=== PATIENT | female | born 1960 | race Caucasian/White ===

== ENCOUNTER 2017-01-20 17:22 | Inpatient (IN) | payer OTHER ==
[~2017-01-20 17:22] MED LIST: CERTAGEN1 EACH PO; FOLIC ACID1 MG PO; THIAMINE HCL100 MG PO
[2017-01-20 18:29] LABS: BILIRUBIN NEGATIVE (NEGATIVE); BLOOD NEGATIVE Ery/uL (NEGATIVE); CLARITY CLEAR (CLEAR); COLOR YELLOW (YELLOW); GLUCOSE (U) NORMAL (NORMAL); KETONE (U) NEGATIVE (NEGATIVE); LEUKOCYTES NEGATIVE Leu/uL (NEGATIVE); NITRITE NEGATIVE (NEGATIVE); PROTEIN NEGATIVE (NEGATIVE); SPECIFIC GRAVITY 1.015 (1.001-1.030); UROBILINOGEN 0.2 mg/dL (0.2-1.0); pH 7.5 (5.0-9.0)
[2017-01-20 19:51] LABS: BASOPHIL 0.2 % (0-2); EOSINOPHIL 0.1 % (0-5); HCT 37.6 % (37.0-47.0); HGB 13.5 g/dl (12.5-16.0); LYMPHOCYTE 8.2 % (15-48); MCHC 35.9 g/dL (32.0-36.0); MCV 86.2 fL (78.0-100.0); MONOCYTE 7.6 % (0-12); MPV 9.1 fL (6.0-9.5); NEUTROPHIL 83.9 % (41-80); PLT 192 K/uL (150-400); RBC 4.36 M/uL (4.20-5.40); RDW 12.5 % (11.5-14.0); WBC 15.6 K/uL (4.0-10.5)
[2017-01-20 19:58] LABS: ALBUMIN 4.6 g/dL (3.5-5.0); CREATININE 0.6 mg/dL (0.5-1.0); GLOBULIN (CALCULATION) 3.1 g/dL (2.2-4.2); POTASSIUM 4.2 mmol/L (3.5-5.1); TOTAL PROTEIN 7.7 g/dL (6.4-8.3)
[2017-01-20 20:25] LABS: LACTIC ACID 1.2 mmol/L (0.5-2.2)
[2017-01-20 22:10] LABS: CKMB 1.11 ng/mL (0.97-4.94); TROPONIN T < 0.010 ng/mL
[2017-01-20 22:11] LABS: AMPHETAMINES NEGATIVE (NEGATIVE); BARBITURATES NEGATIVE (NEGATIVE); BENZODIAZEPINES NEGATIVE (NEGATIVE); COCAINE NEGATIVE (NEGATIVE); MARIJUANA (THC) NEGATIVE (NEGATIVE); METHADONE NEGATIVE (NEGATIVE); TRICYCLIC ANTIDEPRESSANT NEGATIVE (NEGATIVE)
[2017-01-21 01:51] LABS: TROPONIN T < 0.010 ng/mL
[2017-01-21 07:22] LABS: BASOPHIL 0.4 % (0-2); EOSINOPHIL 0.1 % (0-5); HCT 31.6 % (37.0-47.0); HGB 10.6 g/dl (12.5-16.0); LYMPHOCYTE 11.1 % (15-48); MCH 29.9 pg (25.0-31.0); MCHC 33.5 g/dL (32.0-36.0); MONOCYTE 11.7 % (0-12); MPV 8.8 fL (6.0-9.5); NEUTROPHIL 76.7 % (41-80); PLT 146 K/uL (150-400); RBC 3.55 M/uL (4.20-5.40); RDW 12.9 % (11.5-14.0)
[2017-01-21 07:41] LABS: TROPONIN T < 0.010 ng/mL
[2017-01-21 10:56] LABS: BILIRUBIN NEGATIVE (NEGATIVE); BLOOD 1+ Ery/uL (NEGATIVE); CLARITY CLEAR (CLEAR); COLOR YELLOW (YELLOW); GLUCOSE (U) NORMAL (NORMAL); KETONE (U) NEGATIVE (NEGATIVE); LEUKOCYTES NEGATIVE Leu/uL (NEGATIVE); NITRITE NEGATIVE (NEGATIVE); PROTEIN NEGATIVE (NEGATIVE); SPECIFIC GRAVITY 1.025 (1.001-1.030); UROBILINOGEN 0.2 mg/dL (0.2-1.0); pH 5.5 (5.0-9.0)
[2017-01-21 10:57] LABS: INR 1.21 (0.9-1.2); PROTHROMBIN TIME 14.9 SECONDS (11.7-14.0); PTT 30.7 SECONDS (23.2-31.4)
[2017-01-21 10:59] LABS: ALBUMIN 3.5 g/dL (3.5-5.0); BILIRUBIN - TOTAL 1.4 mg/dL (0.1-1.0); CREATININE 0.6 mg/dL (0.5-1.0); GLOBULIN (CALCULATION) 2.4 g/dL (2.2-4.2); MAGNESIUM 1.62 mg/dL (1.40-2.10); PHOSPHORUS 3.4 mg/dL (2.7-4.5); POTASSIUM 3.6 mmol/L (3.5-5.1); TOTAL PROTEIN 5.9 g/dL (6.4-8.3)
[2017-01-22 06:54] LABS: HCT 30.6 % (37.0-47.0); HGB 10.1 g/dl (12.5-16.0); MCH 29.8 pg (25.0-31.0); MCV 90.3 fL (78.0-100.0); MPV 9.4 fL (6.0-9.5); RBC 3.39 M/uL (4.20-5.40); RDW 12.6 % (11.5-14.0); WBC 8.7 K/uL (4.0-10.5)
[2017-01-22 07:12] LABS: CREATININE 0.7 mg/dL (0.5-1.0); POTASSIUM 3.6 mmol/L (3.5-5.1)
== END 2017-01-23 13:27 | disposition home or self-care (01) | DRG 854 ==
LOC: FER 17:22 → FTCU 21:00 → FMS 01-22 17:55
PROVIDERS: Emergency Medicine; Nurse Practitioner; Surgery; ADMIT Internal Medicine
PROC: 0DTJ4ZZ Resection of Appendix, Percutaneous Endoscopic Approach (ICD-10-PCS; principal; 2017-01-20)
DX: A41.9 Sepsis, unspecified organism (principal); K35.80 Unspecified acute appendicitis; I10 Essential (primary) hypertension; I25.2 Old myocardial infarction; F10.21 Alcohol dependence, in remission; F17.210 Nicotine dependence, cigarettes, uncomplicated
CPT/HCPCS: 36415; 71010; 80048; 80053; 80305; 81003; 82150; 82550; 82553; 83605; 83690; 83735; 84100; 84145; 84484; 85025; 85610; 85730; 87040; 88304; 93005; 94010; J0131; J1170; J1885; J2405; J2543; J2704; J3010; J3411; Q9967

== ENCOUNTER 2017-01-30 22:19 | Inpatient (IN) | payer OTHER ==
[2017-01-31 00:03] LABS: BASOPHIL 0.7 % (0-2); EOSINOPHIL 0.9 % (0-5); HCT 34.8 % (37.0-47.0); LYMPHOCYTE 18.7 % (15-48); MCH 30.5 pg (25.0-31.0); MCHC 34.5 g/dL (32.0-36.0); MCV 88.3 fL (78.0-100.0); MONOCYTE 6.8 % (0-12); MPV 8.5 fL (6.0-9.5); NEUTROPHIL 72.9 % (41-80); PLT 481 K/uL (150-400); RBC 3.94 M/uL (4.20-5.40); RDW 13.1 % (11.5-14.0); WBC 10.1 K/uL (4.0-10.5)
[2017-01-31 00:08] LABS: INR 1.06 (0.9-1.2); PROTHROMBIN TIME 13.4 SECONDS (11.7-14.0); PTT 30.9 SECONDS (23.2-31.4)
[2017-01-31 00:31] LABS: ALBUMIN 4.4 g/dL (3.5-5.0); BILIRUBIN - TOTAL 0.3 mg/dL (0.1-1.0); CREATININE 0.7 mg/dL (0.5-1.0); GLOBULIN (CALCULATION) 2.9 g/dL (2.2-4.2); POTASSIUM 3.6 mmol/L (3.5-5.1); TOTAL PROTEIN 7.3 g/dL (6.4-8.3)
[2017-01-31 05:07] LABS: BASOPHIL 0.4 % (0-2); EOSINOPHIL 0.5 % (0-5); HCT 31.3 % (37.0-47.0); HGB 10.5 g/dl (12.5-16.0); LYMPHOCYTE 15.6 % (15-48); MCHC 33.5 g/dL (32.0-36.0); MCV 89.4 fL (78.0-100.0); MONOCYTE 8.2 % (0-12); MPV 8.2 fL (6.0-9.5); NEUTROPHIL 75.3 % (41-80); PLT 427 K/uL (150-400); WBC 12.8 K/uL (4.0-10.5)
[2017-01-31 05:17] LABS: CREATININE 0.8 mg/dL (0.5-1.0); POTASSIUM 3.9 mmol/L (3.5-5.1)
[2017-01-31 05:18] LABS: CKMB 2.99 ng/mL (0.97-4.94); TROPONIN T < 0.010 ng/mL
[2017-02-01 04:42] LABS: HCT 27.1 % (37.0-47.0); HGB 8.7 g/dl (12.5-16.0); MCH 29.4 pg (25.0-31.0); MCHC 32.1 g/dL (32.0-36.0); MCV 91.6 fL (78.0-100.0); MPV 8.3 fL (6.0-9.5); RBC 2.96 M/uL (4.20-5.40); RDW 12.9 % (11.5-14.0); WBC 9.3 K/uL (4.0-10.5)
[2017-02-02 05:01] LABS: HCT 26.1 % (37.0-47.0); HGB 8.6 g/dl (12.5-16.0); MCH 29.7 pg (25.0-31.0); MPV 8.7 fL (6.0-9.5); RBC 2.9 M/uL (4.20-5.40); RDW 12.8 % (11.5-14.0); WBC 6.8 K/uL (4.0-10.5)
[2017-02-02 05:14] LABS: CREATININE 0.7 mg/dL (0.5-1.0); POTASSIUM 4.3 mmol/L (3.5-5.1)
[2017-02-03 06:52] LABS: HCT 24.9 % (37.0-47.0); HGB 8.3 g/dl (12.5-16.0); MCH 29.9 pg (25.0-31.0); MCHC 33.3 g/dL (32.0-36.0); MCV 89.6 fL (78.0-100.0); MPV 8.8 fL (6.0-9.5); RBC 2.78 M/uL (4.20-5.40); RDW 12.7 % (11.5-14.0); WBC 7.1 K/uL (4.0-10.5)
[2017-02-03 07:10] LABS: CREATININE 0.5 mg/dL (0.5-1.0); POTASSIUM 4.1 mmol/L (3.5-5.1)
[2017-02-04 05:12] LABS: HCT 28.8 % (37.0-47.0); HGB 9.5 g/dl (12.5-16.0); MCH 29.4 pg (25.0-31.0); MCV 89.2 fL (78.0-100.0); MPV 8.7 fL (6.0-9.5); RBC 3.23 M/uL (4.20-5.40); RDW 12.8 % (11.5-14.0); WBC 6.2 K/uL (4.0-10.5)
[2017-02-04] MEDS ORDERED: XARELTO10 MG PO (14:05)
[2017-02-04] MEDS ORDERED: NORCO 5-325 TA1 EACH PO (14:05)
== END 2017-02-04 16:03 | disposition home health service (06) | DRG 481 ==
LOC: FER 22:19 → FMS 01-31 01:45
PROVIDERS: Emergency Medicine; Orthopaedic Surgery; ADMIT Internal Medicine Cardiovascular Disease
PROC: 0QS706Z Reposition Left Upper Femur with Intramedullary Internal Fixation Device, Open Approach (ICD-10-PCS; principal; 2017-01-31 16:00)
DX: S72.142A Displaced intertrochanteric fracture of left femur, initial encounter for closed fracture (principal); K86.1 Other chronic pancreatitis; F10.21 Alcohol dependence, in remission; S72.042A Displaced fracture of base of neck of left femur, initial encounter for closed fracture; W03.XXXA Other fall on same level due to collision with another person, initial encounter; Y93.89 Activity, other specified; Y92.007 Garden or yard of unspecified non-institutional (private) residence as the place of occurrence of the external cause; F17.210 Nicotine dependence, cigarettes, uncomplicated; I49.9 Cardiac arrhythmia, unspecified; I25.10 Atherosclerotic heart disease of native coronary artery without angina pectoris; Z88.5 Allergy status to narcotic agent; I45.10 Unspecified right bundle-branch block
CPT/HCPCS: 36415; 71010; 72192; 73501; 76000; 80048; 80053; 82550; 82553; 84443; 84484; 85025; 85610; 85730; 93005; 94010; 97110; 97116; 97162; 97166; 97530; 97530-GP; 97535; C1713; J0131; J0697; J1170; J1885; J2405; J2704; J3010

== ENCOUNTER 2020-12-09 14:14 | Inpatient (IN) | payer OTHER ==
[~2020-12-09 14:14] MED LIST changes: +NORCO 5-325 TA1 EACH PO; +XARELTO10 MG PO
[2020-12-09 15:33] LABS: BASOPHIL 0.4 % (0-2); EOSINOPHIL 0.2 % (0-5); HGB 13.1 g/dl (12.5-16.0); LYMPHOCYTE 7.7 % (15-48); MCH 36.2 pg (25.0-31.0); MCHC 36.4 g/dL (32.0-36.0); MCV 99.4 fL (78.0-100.0); MONOCYTE 5.5 % (0-12); MPV 8.7 fL (6.0-9.5); NEUTROPHIL 85.5 % (41-80); NRBC 0; PLT 316 K/uL (150-400); RBC 3.62 M/uL (4.20-5.40); RDW 12.8 % (11.5-14.0); WBC 9.7 K/uL (4.0-10.5)
[2020-12-09 15:43] LABS: BUN/CREAT RATIO (CALC) 14.7 RATIO; CREATININE 0.68 mg/dL (0.51-0.95); POTASSIUM 2.9 mmol/L (3.5-5.1)
[2020-12-09 16:08] LABS: CORONAVIRUS 2019 SARS-COV-2 NEGATIVE (NEGATIVE); INFLUENZA A NAA NEGATIVE (NEGATIVE)
[2020-12-09 21:56] LABS: C-REACTIVE PROTEIN >18.00 mg/dL (<=0.90)
[2020-12-10 04:58] LABS: BASOPHIL 0.2 % (0-2); EOSINOPHIL 0 % (0-5); HCT 32.5 % (37.0-47.0); HGB 11.5 g/dl (12.5-16.0); LYMPHOCYTE 3.3 % (15-48); MCH 35.9 pg (25.0-31.0); MCHC 35.4 g/dL (32.0-36.0); MCV 101.6 fL (78.0-100.0); MONOCYTE 3.4 % (0-12); MPV 8.7 fL (6.0-9.5); NRBC 0; PLT 298 K/uL (150-400); RDW 13.2 % (11.5-14.0); WBC 10.7 K/uL (4.0-10.5)
[2020-12-10 05:00] LABS: NEUTROPHIL 92.4 % (41-80)
[2020-12-10 05:37] LABS: BUN 9 mg/dL (7-18); CHLORIDE 99 mmol/L (98-107); CO2 (BICARBONATE) 24 mmol/L (21-32); CREATININE 0.53 mg/dL (0.51-0.95); GLUCOSE 167 mg/dL (74-106); PHOSPHORUS 4.2 mg/dL (2.6-4.7); POTASSIUM 3.4 mmol/L (3.5-5.1)
[2020-12-10 05:42] LABS: C-REACTIVE PROTEIN >18.00 mg/dL (<=0.90)
[2020-12-11 07:05] LABS: BASOPHIL 0.2 % (0-2); EOSINOPHIL 0 % (0-5); HCT 32.4 % (37.0-47.0); HGB 11.2 g/dl (12.5-16.0); LYMPHOCYTE 3.5 % (15-48); MCH 35.8 pg (25.0-31.0); MCHC 34.6 g/dL (32.0-36.0); MCV 103.5 fL (78.0-100.0); MONOCYTE 4.9 % (0-12); MPV 8.7 fL (6.0-9.5); NEUTROPHIL 90.8 % (41-80); NRBC 0; PLT 324 K/uL (150-400); RBC 3.13 M/uL (4.20-5.40); RDW 13.4 % (11.5-14.0); WBC 17.7 K/uL (4.0-10.5)
[2020-12-11 07:22] LABS: BUN/CREAT RATIO (CALC) 22.6 RATIO; C-REACTIVE PROTEIN 16.5 mg/dL (<=0.90); CREATININE 0.53 mg/dL (0.51-0.95); MAGNESIUM 2.2 mg/dL (1.8-2.4); POTASSIUM 3.9 mmol/L (3.5-5.1)
[2020-12-12 05:36] LABS: BASOPHIL 0.3 % (0-2); EOSINOPHIL 0 % (0-5); HCT 34.2 % (37.0-47.0); HGB 11.7 g/dl (12.5-16.0); LYMPHOCYTE 3.9 % (15-48); MCH 35.8 pg (25.0-31.0); MCHC 34.2 g/dL (32.0-36.0); MCV 104.6 fL (78.0-100.0); MONOCYTE 4.3 % (0-12); MPV 8.8 fL (6.0-9.5); NEUTROPHIL 90.3 % (41-80); NRBC 0; PLT 384 K/uL (150-400); RBC 3.27 M/uL (4.20-5.40); RDW 13.6 % (11.5-14.0); WBC 14.3 K/uL (4.0-10.5)
[2020-12-12 06:12] LABS: BUN/CREAT RATIO (CALC) 26.4 RATIO; C-REACTIVE PROTEIN 10.8 mg/dL (<=0.90); CREATININE 0.53 mg/dL (0.51-0.95); MAGNESIUM 2.2 mg/dL (1.8-2.4); POTASSIUM 3.9 mmol/L (3.5-5.1)
--- NOTE | 2020-12-13 15:02 | NUR ---
12/13/20 Ms. Benites and her boyfriend share a home together. She was independent in the home and community prior to admission. Ms. Benites chose [facility] for 02 needs at discharge.
--- NOTE | 2020-12-16 13:44 | NUR ---
PHARMACIST CAME AND SPOKE TO PATIENT ABOUT ADMINISTRATION OF INSULIN WITH NEEDLE AND SYRINGE AND PRE-LOADED PEN. PATIENT DID TEACH BACK METHOD OF EDUCATION AND MEDICATION ADMINISTRATION. VERBALIZED THAT IF HE WAS TO HAVE ANY MORE QUESTIONS HE WOULD CALL TO HAVE THEM ANSWERED. AND WOULD ASK ANY QUESTIONS ABOUT MEDICATIONS TO PHARMACY OR CALL.
[2020-12-16] MEDS ORDERED: CLONAZEPAM0.5 MG PO (13:49)
[2020-12-16] MEDS ORDERED: VENTOLIN HFA IN18 GM INH (13:49)
[2020-12-16] MEDS ORDERED: DECADRON6 MG PO (13:49)
--- NOTE | 2020-12-16 15:02 | NUR ---
12/16/20 02 delivered to patient room from [facility]
== END 2020-12-16 15:12 | disposition home or self-care (01) | DRG 871 ==
LOC: FER 14:14 → FICU 17:43 → FTCU 12-14 19:40
PROVIDERS: Nurse Practitioner; Nurse Practitioner Family; ADMIT Internal Medicine
PROC: XW033E5 Introduction of Remdesivir Anti-infective into Peripheral Vein, Percutaneous Approach, New Technology Group 5 (ICD-10-PCS; principal; 2020-12-09)
PROC: 8E0ZXY6 Isolation (ICD-10-PCS; 2020-12-09)
PROC: 5A0955A Assistance with Respiratory Ventilation, Greater than 96 Consecutive Hours, High Flow/Velocity Cannula (ICD-10-PCS; 2020-12-10)
DX: A41.89 Other specified sepsis (principal); U07.1 COVID-19; J96.01 Acute respiratory failure with hypoxia; J18.9 Pneumonia, unspecified organism; F10.21 Alcohol dependence, in remission; I10 Essential (primary) hypertension; F17.210 Nicotine dependence, cigarettes, uncomplicated; Z98.51 Tubal ligation status; Z88.5 Allergy status to narcotic agent; Z98.890 Other specified postprocedural states; I25.2 Old myocardial infarction
CPT/HCPCS: 36415; 36600; 71045; 71275; 80048; 82607; 82728; 82803; 83605; 83735; 83880; 84100; 84145; 84484; 85025; 85379; 86140; 87040; 93005; 94010; 94640; 94664; 94667; 94668; C9399; J0456; J0696; J1100; J1650; J1940; J2405; J7030; J7050; Q9967; U0002